=== PATIENT | female | born 1990 | race African-American/Black ===

== ENCOUNTER 2016-06-13 13:43 | Emergency (ER) | payer MEDICARE, MEDICAID ==
[2016-06-13 14:01] VITALS: TEMP 98.3; BMI 22.1
--- NOTE | 2016-06-13 16:39 | EDPRACDOC ---
- General Information Chief Complaint: Wound Stated Complaint: CONTINUES HAVING PAIN SITE Time Seen by Provider: 06/13/16 16:19 Information Source: Patient Mode Of Arrival: Car Home Medications: Home Medications Medroxyprogesterone [Provera] 10 mg PO DAILY #10 tab 06/13/16 Oxycodone HCl/Acetaminophen [Percocet 5-325 mg Tablet] 1 tab PO Q4-6H PRN #20 tab 06/13/16 Allergies/Adverse Reactions: Allergies Allergy/AdvReac Type Severity Reaction Status Date / Time No Known Allergies Allergy Verified 06/13/16 14:01 - History of Present Illness Onset: SEVERAL WKS HPI: PT PRESENTS WITH PERSISTENT PAIN AT HER SITE. STATES THIS WAS HER THIRD AND SHE WAS TOLD NOT TO HAVE ANY MORE CHILDREN DUE TO THE DAMAGE THIS WOULD CAUSE TO HER ABDOMEN. STATES SHE IS CONTINUING TO HAVE HER PERIOD SINCE GIVING . DENIES FEVER, CHILLS, NAUSEA OR VOMITING. Pain Location: Reports: Suprapubic Pain Context: Reports: Spontaneous Pain Severity: Moderate Pain Quality: Reports: Sharp, Stabbing Pain Radiation: Reports: No Radiation Last Menstrual Period: NOW : No Abortus: 0 Blood Type: O+ Adult Abdominal History: Denies: Urolithiasis, Bowel Obstruction Female Abdominal History: Denies: Urolithiasis Modifying Factors: improves with: Nothing Female Associated Signs & Symptoms: Reports: Vaginal Bleeding Oral Intake: Normal Urinary Output: Normal - Treatment Prior to ED Arrival Reported Medications/Treatment CHEMIST ENZYMES Treated With Medication CHEMIST ENZYMES YES Ibuprofen/Acetaminophen (Dose/ TYLENOL-1000 Time) ED Past Medical History - History Reviewed Yes Nurses notes reviewed and agree except as marked - Patient Medical History Neurological History: Reports: Seizures (WHEN YOUNGER). Denies: Cerebrovascular Accident, Epilepsy, Guillian-Carmen Syndrome, Multiple Sclerosis Cardiac History: Denies: Syncope Psychological History: Denies: Depression Systemic History: Denies: Cancer, Anemia, Lupus Surgical History: Reports: Other (CXSN). Denies: Hysterectomy - Family Medical History Reports: Hypertension (MOTHER), Diabetes (GRANDMOTHER). Denies: Cancer, Stroke , Cardiac Disorders - Social Medical History Smoking Status: Never smoker EDM Review of Systems - Review of Systems ROS Negative Except as Marked: Yes All systems reviewed and were negative except as marked - Physical Exam Constitutional: No apparent distress, Alert Oriented to: Time, Person, Place Last recorded Vital Signs: Last Vital Signs Temp 98.3 F 06/13/16 13:57 Pulse 76 06/13/16 13:57 Resp 20 06/13/16 13:57 BP 129/81 06/13/16 13:57 Pulse Ox 99 06/13/16 13:57 Oxygen Pulse Oxygen Saturation 99 O2 Device Oxygen Flow Rate Fraction of Inspired Oxygen ( FIO2) - HEENT Head: Normal ( normocephalic) Eye Exam: Normal (PERRL, EOMI, Sclera white) Oropharynx: Normal (Pharynx:Moist without exudate,Gums-no swelling) Nose: No Symptoms Reported (septum midline) Neck: Normal (FROM, trachea at midline) - Respiratory/Cardiovascular Respiratory: Normal - CTA (BBS clear to auscultation without adventitious sounds ) Cardiovascular: Normal (RRR without murmur, gallop or rub) - GI Auscultation: Normal (NABS) Palpation: Normal (Soft,No rebound or guarding, non distended) Tenderness: Moderate, Suprapubic ( WOUND IS WELL HEALED, NO REDNESS OR DRAINAGE NOTED.) Rogers's Sign: Negative Rectal Exam: Deferred - Musculoskeletal Back: Normal (Non-Tender) Extremities: Normal (Normal tone, Pulses 2+ No cyanosis or edema, FROM) - Integumentary Skin: Normal, Warm, Dry Lymphatics: Normal (no adenopathy) - Neurologic Memory Impaired: Normal Motor Function: Normal (Normal tone, Pulses 2+ No cyanosis or edema, FROM) Cranial Nerve: Normal (CN II-X11 intact sensation, strength 5/5) Cerebellar: Normal Mood Description: Normal Perception: Normal - Differential Diagnosis Other Decision Time to Discharge: 16:41 - Departure Disposition: Home Condition: Stable Final Diagnosis: Status post section Abdominal pain Qualifiers: Abdominal location: lower abdomen, unspecified Qualified Code(s): R10.30 - Lower abdominal pain, unspecified Instructions: Non-pharmacological Pain Management Therapies for Adults (GEN), Abdominal Pain (ED) Education/Counseling Given To: Patient Education/Counseling Given Regarding: Diagnosis, Treatment, Prognosis, Follow Up Referrals: Emilie Sarmiento DO [Staff Physician] - One Week Prescriptions: Medroxyprogesterone [Provera] 10 mg PO DAILY #10 tab Oxycodone HCl/Acetaminophen [Percocet 5-325 mg Tablet] 1 tab PO Q4-6H PRN #20 tab PRN Reason: Pain Additional Instructions: ICE OR HEAT TO THE AFFECTED AREA. FOLLOW UP WITH TRAILER CHIEF NEXT WEEK. RETURN TO THE ED FOR WORSENING SYMPTOMS OR CONCERNS
[2016-06-13 16:42] VITALS: BP 124/74; PULSE 78
== END 2016-06-13 17:02 | disposition home or self-care (01) ==
LOC: ED 13:43
DX: G89.18 Other acute postprocedural pain (principal); R10.30 Lower abdominal pain, unspecified
CPT/HCPCS: 99283